=== PATIENT | male | born 1950 | race Two or more races ===

== ENCOUNTER 2023-02-11 16:20 | Inpatient (IN) | payer OTHER, MEDICAID ==
[~2023-02-11] VITALS: Ht 170.2 cm; Wt 83.0 kg
[2023-02-11 18:00] LABS: Basophils # (auto) 0 10 ^3/uL (0-0.2); Basophils % (auto) 0.7 % (0.0-2.0); Eosinophils # (auto) 0 10 ^3/uL (0-0.8); Eosinophils % (auto) 0.7 % (0.0-7.0); Hematocrit 35.7 % (41.0-53.0); Hemoglobin 11.4 g/dL (13.5-17.5); Lymphocytes # (auto) 0.6 10 ^3/uL (0.4-5.4); Lymphocytes % (auto) 8.8 % (10.0-50.0); Mean Corpuscular Hemoglobin 28.2 pg (28.0-32.0); Mean Corpuscular Volume 88.2 fL (80.0-100.0); Monocytes # (auto) 0.9 10 ^3/uL (0-1.3); Monocytes % (auto) 12.9 % (0.0-12.0); Neutrophils # (auto) 5.5 10 ^3/uL (1.6-8.6); Neutrophils % (auto) 76.9 % (37.0-80.0); Red Blood Cells 4.05 10^6/uL (4.5-5.90); Red Cell Distribution Width 17.9 % (11.8-14.3); White Blood Cell 7.1 10^3/uL (4.4-10.8)
[2023-02-11 18:23] LABS: Albumin 2.4 g/dL (3.4-5.0); Anion Gap 12 (5-15); Blood Urea Nitrogen 73 mg/dL (7-18); Calcium 10.3 mg/dL (8.5-10.1); Carbon Dioxide 17 mmol/L (21-32); Chloride 112 mmol/L (98-107); Glucose 170 mg/dL (74-106); Lipase 62 U/L (73-393); Magnesium 1.5 mg/dL (1.6-2.6); Potassium 4.5 mmol/L (3.5-5.1); Sodium 141 mmol/L (136-145)
[2023-02-11 18:28] LABS: Alanine Aminotransferase 18 U/L (16-61); Alkaline Phosphatase 37 U/L (45-117); Aspartate Aminotransferase 22 U/L (15-37); BUN/Creatinine Ratio 13.9 (10.0-20.0); Bilirubin, Total 0.5 mg/dL (0.2-1.0); Blood Alcohol < 3.0 mg/dL (<10); GFR African American 14 mL/min; GFR Non-African American 12 mL/min; Total Protein 5.2 g/dL (6.4-8.2)
[2023-02-11 18:32] LABS: Lactic Acid w/Reflex 3.8 mmol/L (0.4-2.0)
[2023-02-11 22:02] LABS: Urine Bacteria NONE SEEN /hpf (None Seen); Urine Blood 2+ /uL (Negative); Urine Specific Gravity 1.014 (1.001-1.035); Urine WBC 8 /hpf (0 - 3)
[2023-02-11 22:15] LABS: Barbiturate Scree,Urine NEGATIVE (NEGATIVE); Benzodiazephine Screen, Urine NEGATIVE (NEGATIVE); Cannabinoid Screen, Urine NEGATIVE (NEGATIVE)
[2023-02-11 22:19] LABS: Alcohol, Urine < 3.0 mg/dL (0-10); Amphetamine Screen, Urine NEGATIVE (NEGATIVE); Cocaine Screen, Urine NEGATIVE (NEGATIVE); Opiate Scree,Urine NEGATIVE (NEGATIVE); Phencyclidine Screen, Urine NEGATIVE (NEGATIVE)
[2023-02-11] MEDS ORDERED: NITROGLYCERIN 0.4 MG SL TAB SL PRN (22:30)
[2023-02-11] MEDS ORDERED: MORPHINE SULFATE INJ 2 MG/ml SYRG IV PRN (22:30)
[2023-02-11] MEDS ORDERED: CIPROFLOXACIN 400MG/200ML 200 ML IV ONE (22:30)
[2023-02-11] MEDS ORDERED: SOD CHL 0.45% 1,000 ML IV ONE (22:30)
[2023-02-11 23:28] LABS: INR 1.49 (0.9-1.15)
[2023-02-12] MEDS ORDERED: METF-370 PO (01:05)
[2023-02-12] MEDS ORDERED: FERR325T20 PO (01:05)
[2023-02-12] MEDS ORDERED: PRAV20TA3 PO (01:05)
[2023-02-12] MEDS ORDERED: DOCU-94 PO (01:05)
[2023-02-12] MEDS ORDERED: FENO145T27 PO (01:05)
[2023-02-12] MEDS ORDERED: ATEN-60 PO (01:05)
[2023-02-12] MEDS ORDERED: RIVA10TA PO (01:05)
[2023-02-12 05:52] LABS: Basophils # (auto) 0.1 10 ^3/uL (0-0.2); Basophils % (auto) 0.7 % (0.0-2.0); Eosinophils # (auto) 0.1 10 ^3/uL (0-0.8); Eosinophils % (auto) 1.1 % (0.0-7.0); Hematocrit 33.7 % (41.0-53.0); Hemoglobin 10.9 g/dL (13.5-17.5); Lymphocytes # (auto) 0.6 10 ^3/uL (0.4-5.4); Lymphocytes % (auto) 8.2 % (10.0-50.0); Mean Corpuscular Hemoglobin 28.5 pg (28.0-32.0); Mean Corpuscular Hgb Conc. 32.3 g/dL (32.0-36.0); Mean Corpuscular Volume 88.3 fL (80.0-100.0); Monocytes # (auto) 0.9 10 ^3/uL (0-1.3); Monocytes % (auto) 12.4 % (0.0-12.0); Neutrophils # (auto) 5.9 10 ^3/uL (1.6-8.6); Neutrophils % (auto) 77.6 % (37.0-80.0); Nucleated Red Blood Cells % 0.2 %; Red Blood Cells 3.82 10^6/uL (4.5-5.90); Red Cell Distribution Width 17.9 % (11.8-14.3); White Blood Cell 7.6 10^3/uL (4.4-10.8)
[2023-02-12 06:09] LABS: Potassium 4.3 mmol/L (3.5-5.1)
[2023-02-12 06:17] LABS: Albumin 2.2 g/dL (3.4-5.0); BUN/Creatinine Ratio 14.7 (10.0-20.0); Bilirubin, Total 0.5 mg/dL (0.2-1.0); Calcium 9.5 mg/dL (8.5-10.1); Total Protein 5.2 g/dL (6.4-8.2)
[2023-02-12] MEDS ORDERED: DEXTROSE (50%) 50ML SYRG IV ONE (08:00)
[2023-02-12] MEDS: cefTRIAXone 1GM/50ML D5W 50 ML IV SCH (08:45)
[2023-02-12 10:15] VITALS: BP 96/58
[2023-02-12 10:30] VITALS: BP 95/61
[2023-02-12] MEDS ORDERED: InsuLIN REG 1unit/0.01ml Soln (100units/ml) SC ONE (11:30)
[2023-02-12] MEDS ORDERED: ACCU-CHEK COMFORT CURVE STRIP VI ONE (11:30)
[2023-02-12 13:00] VITALS: BP 111/68
[2023-02-12] MEDS ORDERED: DEXTROSE (50%) 50ML SYRG IV PRN (14:00)
[2023-02-12 17:00] VITALS: BP 107/65
[2023-02-12] MEDS: InsuLIN REG 1unit/0.01ml Soln (100units/ml) SC SCH ×2 (17:00→20:37)
[2023-02-12] MEDS: ACCU-CHEK COMFORT CURVE STRIP VI SCH ×2 (17:05→20:38)
[2023-02-12] MEDS ORDERED: ONDANSETRON HCL 4 MG/2 ML VIAL IV PRN (17:30)
[2023-02-12 20:00] VITALS: BP 114/74
[2023-02-12] MEDS: HYDROcodone-ACET 5/325MG TAB PO PRN (20:34)
[2023-02-12 22:00] VITALS: BP 114/74
[2023-02-13] VITALS (7 sets, daily range): BP systolic 90–126; BP diastolic 48–78
[2023-02-13] MEDS ORDERED: DULA0.5I SC (04:07)
[2023-02-13] MEDS: ACCU-CHEK COMFORT CURVE STRIP VI SCH ×4 (05:49→22:25)
[2023-02-13] MEDS: InsuLIN REG 1unit/0.01ml Soln (100units/ml) SC SCH ×4 (05:49→22:00)
[2023-02-13] MEDS: cefTRIAXone 1GM/50ML D5W 50 ML IV SCH (10:51)
[2023-02-13 16:12] LABS: Calcium 9.1 mg/dL (8.5-10.1); Potassium 4.2 mmol/L (3.5-5.1)
[2023-02-13 16:15] LABS: BUN/Creatinine Ratio 14.9 (10.0-20.0)
[2023-02-13] MEDS ORDERED: SODIUM CHLORIDE 0.9% 1,000 ML IV ONE (18:30)
[2023-02-14 05:00] VITALS: BP 122/64
[2023-02-14] MEDS: InsuLIN REG 1unit/0.01ml Soln (100units/ml) SC SCH ×4 (06:26→23:02)
[2023-02-14] MEDS: ACCU-CHEK COMFORT CURVE STRIP VI SCH ×4 (06:26→23:00)
[2023-02-14 06:34] LABS: Basophils # (auto) 0 10 ^3/uL (0-0.2); Basophils % (auto) 0.7 % (0.0-2.0); Eosinophils # (auto) 0.1 10 ^3/uL (0-0.8); Eosinophils % (auto) 1.2 % (0.0-7.0); Hematocrit 33.3 % (41.0-53.0); Hemoglobin 10.8 g/dL (13.5-17.5); Lymphocytes # (auto) 0.5 10 ^3/uL (0.4-5.4); Lymphocytes % (auto) 7.5 % (10.0-50.0); Mean Corpuscular Hemoglobin 28.7 pg (28.0-32.0); Mean Corpuscular Hgb Conc. 32.4 g/dL (32.0-36.0); Mean Corpuscular Volume 88.6 fL (80.0-100.0); Monocytes # (auto) 0.8 10 ^3/uL (0-1.3); Neutrophils # (auto) 5.5 10 ^3/uL (1.6-8.6); Neutrophils % (auto) 78.6 % (37.0-80.0); Nucleated Red Blood Cells % 0.1 %; Red Blood Cells 3.76 10^6/uL (4.5-5.90); Red Cell Distribution Width 17.9 % (11.8-14.3); White Blood Cell 6.9 10^3/uL (4.4-10.8)
[2023-02-14 06:56] LABS: Albumin 2.2 g/dL (3.4-5.0); Calcium 8.9 mg/dL (8.5-10.1); Potassium 4.1 mmol/L (3.5-5.1)
[2023-02-14 07:01] LABS: BUN/Creatinine Ratio 14.9 (10.0-20.0); Bilirubin, Total 0.5 mg/dL (0.2-1.0); Total Protein 5.3 g/dL (6.4-8.2)
[2023-02-14 08:00] VITALS: BP 90/57
[2023-02-14 09:00] VITALS: BP 122/64
[2023-02-14] MEDS: cefTRIAXone 1GM/50ML D5W 50 ML IV SCH (09:14)
[2023-02-14] MEDS ORDERED: MIDAZOLAM HCL 2MG/2ML 2ml VIAL (1mg/ml) ONE (11:35)
[2023-02-14] MEDS ORDERED: fentaNYL CITRATE 100 MCG/2 ML VL ONE (11:35)
[2023-02-14] MEDS ORDERED: IOHEXOL 350 MG/ML 100ML IJ ONE (12:10)
[2023-02-14] MEDS ORDERED: LIDOCAINE 2%HCL (LOCAL ANESTH.) INJ 20ML MDV ONE (12:10)
[2023-02-14 13:00] VITALS: BP 125/74
[2023-02-14 22:00] VITALS: BP 102/60
[2023-02-14] MEDS: HYDROcodone-ACET 5/325MG TAB PO PRN (23:24)
[2023-02-15 05:00] VITALS: BP 114/70
[2023-02-15 06:33] LABS: BUN/Creatinine Ratio 15.7 (10.0-20.0); Calcium 8.6 mg/dL (8.5-10.1); Potassium 3.8 mmol/L (3.5-5.1)
[2023-02-15] MEDS: ACCU-CHEK COMFORT CURVE STRIP VI SCH ×3 (06:42→17:05)
[2023-02-15] MEDS: InsuLIN REG 1unit/0.01ml Soln (100units/ml) SC SCH ×3 (06:45→17:00)
[2023-02-15 08:00] VITALS: BP 102/58
[2023-02-15 09:00] VITALS: BP 102/58
[2023-02-15] MEDS: cefTRIAXone 1GM/50ML D5W 50 ML IV SCH (10:03)
[2023-02-15 15:14] LABS: Basophils # (auto) 0 10 ^3/uL (0-0.2); Basophils % (auto) 0.6 % (0.0-2.0); Eosinophils # (auto) 0.1 10 ^3/uL (0-0.8); Eosinophils % (auto) 1.9 % (0.0-7.0); Hematocrit 38.2 % (41.0-53.0); Hemoglobin 10.9 g/dL (13.5-17.5); Lymphocytes # (auto) 0.4 10 ^3/uL (0.4-5.4); Lymphocytes % (auto) 7.9 % (10.0-50.0); Mean Corpuscular Hemoglobin 28.9 pg (28.0-32.0); Mean Corpuscular Hgb Conc. 28.4 g/dL (32.0-36.0); Mean Corpuscular Volume 101.7 fL (80.0-100.0); Monocytes # (auto) 0.6 10 ^3/uL (0-1.3); Monocytes % (auto) 12.3 % (0.0-12.0); Neutrophils # (auto) 4.1 10 ^3/uL (1.6-8.6); Neutrophils % (auto) 77.3 % (37.0-80.0); Nucleated Red Blood Cells % 0.1 %; Red Blood Cells 3.76 10^6/uL (4.5-5.90); Red Cell Distribution Width 19.9 % (11.8-14.3); White Blood Cell 5.3 10^3/uL (4.4-10.8)
[2023-02-15 15:24] LABS: Calcium 8.9 mg/dL (8.5-10.1)
[2023-02-15 15:27] LABS: BUN/Creatinine Ratio 14.8 (10.0-20.0)
[2023-02-15 15:37] LABS: Potassium 3.9 mmol/L (3.5-5.1)
[2023-02-15] MEDS: HYDROcodone-ACET 5/325MG TAB PO PRN (17:02)
[2023-02-15 17:12] VITALS: BP 102/56
[2023-02-15 21:42] VITALS: BP 95/55
== END 2023-02-15 22:14 | disposition home health service (06) | DRG 689 ==
LOC: EDBD 16:20 → ER 16:20 → TELE 22:33 → TELE-WESTW 02-12 10:17
PROVIDERS: ADMIT Internal Medicine; ATTEND Internal Medicine
PROC: 0T9330Z Drainage of Right Kidney Pelvis with Drainage Device, Percutaneous Approach (ICD-10-PCS; principal; 2023-02-14)
PROC: BT111ZZ Fluoroscopy of Right Kidney using Low Osmolar Contrast (ICD-10-PCS; 2023-02-14)
PROC: BT41ZZZ Ultrasonography of Right Kidney (ICD-10-PCS; 2023-02-14)
DX: N13.6 Pyonephrosis (principal); G93.41 Metabolic encephalopathy; N17.9 Acute kidney failure, unspecified; G93.89 Other specified disorders of brain; I12.9 Hypertensive chronic kidney disease with stage 1 through stage 4 chronic kidney disease, or unspecified chronic kidney disease; E11.22 Type 2 diabetes mellitus with diabetic chronic kidney disease; E11.51 Type 2 diabetes mellitus with diabetic peripheral angiopathy without gangrene; N18.4 Chronic kidney disease, stage 4 (severe); I35.0 Nonrheumatic aortic (valve) stenosis; Z89.611 Acquired absence of right leg above knee; Z89.612 Acquired absence of left leg above knee; N20.0 Calculus of kidney
CPT/HCPCS: 36415; 50432; 70450; 70551; 71045; 71250; 74018; 74176; 76000; 76942; 78582; 80048; 80053; 80307; 80320; 81001; 82962; 83605; 83690; 83735; 83880; 84484; 85025; 85379; 85610; 86850; 86900; 86901; 87040; 93005; 93306; 96365; G0378; J0696; J1815; J2250; J2405

== ENCOUNTER 2023-04-02 16:54 | Inpatient (IN) | payer OTHER, MEDICAID ==
[~2023-04-02] VITALS: Ht 170.2 cm; Wt 67.6 kg
[~2023-04-02 16:54] MED LIST: ATEN-60 PO; DOCU-94 PO; DULA0.5I SC; FENO145T27 PO; FERR325T20 PO; METF-370 PO; PRAV20TA3 PO; RIVA10TA PO
[2023-04-02] MEDS ORDERED: SODIUM CHLORIDE 0.9% 1,000 ML IVB ONE (18:00)
[2023-04-02 18:59] LABS: Basophils # (auto) 0.1 10 ^3/uL (0-0.2); Basophils % (auto) 0.9 % (0.0-2.0); Eosinophils # (auto) 0 10 ^3/uL (0-0.8); Eosinophils % (auto) 0.6 % (0.0-7.0); Hematocrit 31.9 % (41.0-53.0); Hemoglobin 10.4 g/dL (13.5-17.5); Lymphocytes # (auto) 0.8 10 ^3/uL (0.4-5.4); Lymphocytes % (auto) 11.6 % (10.0-50.0); Mean Corpuscular Hemoglobin 29.8 pg (28.0-32.0); Mean Corpuscular Hgb Conc. 32.5 g/dL (32.0-36.0); Mean Corpuscular Volume 91.7 fL (80.0-100.0); Monocytes # (auto) 0.8 10 ^3/uL (0-1.3); Monocytes % (auto) 12.3 % (0.0-12.0); Neutrophils # (auto) 5.1 10 ^3/uL (1.6-8.6); Neutrophils % (auto) 74.6 % (37.0-80.0); Nucleated Red Blood Cells % 0.1 %; Red Blood Cells 3.48 10^6/uL (4.5-5.90); Red Cell Distribution Width 15.8 % (11.8-14.3); White Blood Cell 6.8 10^3/uL (4.4-10.8)
[2023-04-02 19:15] LABS: INR 1.19 (0.9-1.15); Partial Thromboplastin Time 33.4 SEC (24.5-34.5); Prothrombin Time 12.4 sec (9.3-11.8)
[2023-04-02 19:17] LABS: Albumin 2.4 g/dL (3.4-5.0); Calcium 10.7 mg/dL (8.5-10.1); Magnesium 1.7 mg/dL (1.6-2.6)
[2023-04-02 19:19] LABS: BUN/Creatinine Ratio 21.3 (10.0-20.0)
[2023-04-02 19:21] LABS: Bilirubin, Total 0.3 mg/dL (0.2-1.0); Total Protein 5.5 g/dL (6.4-8.2)
[2023-04-02 19:26] LABS: Potassium 6.5 mmol/L (3.5-5.1)
[2023-04-02] MEDS ORDERED: ALBUTEROL SULF 2.5 MG/0.5ML(0.5%) NEB SOLN NEB ONE ×2 (19:45→21:00)
[2023-04-02 20:19] LABS: Calcium 10.5 mg/dL (8.5-10.1)
[2023-04-02 20:21] LABS: BUN/Creatinine Ratio 20.9 (10.0-20.0)
[2023-04-02 20:24] LABS: Potassium 6.4 mmol/L (3.5-5.1)
[2023-04-02] MEDS ORDERED: SODIUM ZIRCONIUM CYCL 10 GM PAK PO ONE (21:00)
[2023-04-02] MEDS ORDERED: DEXTROSE (50%) 50ML SYRG IV ONE (21:00)
[2023-04-02] MEDS ORDERED: SODIUM BICARBONATE 8.4% INJ 50ML SYRINGE IV ONE (21:00)
[2023-04-02] MEDS ORDERED: CALCIUM GLUC 1,000mg/50ml-NS 50 ML IV ONE (21:00)
[2023-04-02] MEDS ORDERED: InsuLIN REG 1unit/0.01ml Soln (100units/ml) IV ONE (21:00)
[2023-04-02 21:10] VITALS: PULSE 94; RESP 20; O2SAT 98
[2023-04-03 03:50] VITALS: PULSE 95; RESP 20; O2SAT 97
[2023-04-03] MEDS ORDERED: SODIUM CHLORIDE 0.9% 1,000 ML IV ONE (05:00)
[2023-04-03 05:27] LABS: Urine Bacteria MANY /hpf (None Seen); Urine Blood TRACE /uL (Negative); Urine Clarity HAZY (Clear); Urine Color Colorless (Yellow); Urine Protein, UAD 1+ (Negative); Urine Specific Gravity 1.013 (1.001-1.035); Urine WBC 345 /hpf (0 - 3)
[2023-04-03 05:49] LABS: BUN/Creatinine Ratio 22.4 (10.0-20.0); Calcium 10.4 mg/dL (8.5-10.1)
[2023-04-03 05:54] LABS: Potassium 5.6 mmol/L (3.5-5.1)
[2023-04-03] MEDS ORDERED: MORPHINE SULFATE INJ 2 MG/ml SYRG IV PRN ×2 (06:30→07:15)
[2023-04-03] MEDS ORDERED: SODIUM ZIRCONIUM CYCL 10 GM PAK PO ONE (06:30)
[2023-04-03] MEDS ORDERED: SODIUM BICARBONATE 50ML VIAL 50 ML in SOD CHL 0.45% 1,000 ML IV ONE (06:30)
[2023-04-03] MEDS ORDERED: ONDANSETRON HCL 4 MG/2 ML VIAL IV PRN (06:30)
[2023-04-03] MEDS ORDERED: DEXTROSE (50%) 50ML SYRG IV PRN (06:45)
[2023-04-03] MEDS ORDERED: SODIUM BICARBONATE 8.4 % INJ 50ML VIAL IV ONE (06:53)
[2023-04-03] MEDS: InsuLIN REG 1unit/0.01ml Soln (100units/ml) SC SCH ×4 (07:00→23:01)
[2023-04-03] MEDS: ACCU-CHEK COMFORT CURVE STRIP VI SCH ×4 (07:12→23:01)
[2023-04-03] MEDS ORDERED: NITROGLYCERIN 0.4 MG SL TAB SL PRN (07:15)
[2023-04-03 08:00] VITALS: PULSE 67; RESP 16; O2SAT 97
[2023-04-03] MEDS ORDERED: cefTRIAXone 1GM/50ML D5W 50 ML IV SCH (09:00)
[2023-04-03] MEDS ORDERED: RIVAROXABAN 2.5 MG TAB PO SCH (10:00)
[2023-04-03] MEDS ORDERED: SODIUM CHLORIDE 0.9% 2,000 ML IV ONE (10:30)
[2023-04-03 11:06] LABS: Basophils # (auto) 0 10 ^3/uL (0-0.2); Basophils % (auto) 0.7 % (0.0-2.0); Eosinophils # (auto) 0 10 ^3/uL (0-0.8); Eosinophils % (auto) 0.2 % (0.0-7.0); Hematocrit 28.6 % (41.0-53.0); Hemoglobin 9.3 g/dL (13.5-17.5); Lymphocytes # (auto) 0.7 10 ^3/uL (0.4-5.4); Lymphocytes % (auto) 12.1 % (10.0-50.0); Mean Corpuscular Hemoglobin 29.9 pg (28.0-32.0); Mean Corpuscular Hgb Conc. 32.4 g/dL (32.0-36.0); Monocytes # (auto) 0.7 10 ^3/uL (0-1.3); Monocytes % (auto) 12.9 % (0.0-12.0); Neutrophils % (auto) 74.1 % (37.0-80.0); Nucleated Red Blood Cells % 0.1 %; Red Blood Cells 3.11 10^6/uL (4.5-5.90); Red Cell Distribution Width 15.8 % (11.8-14.3); White Blood Cell 5.4 10^3/uL (4.4-10.8)
[2023-04-03 11:44] LABS: Calcium 10.5 mg/dL (8.5-10.1)
[2023-04-03 11:45] LABS: BUN/Creatinine Ratio 23.4 (10.0-20.0)
[2023-04-03 11:47] LABS: Potassium 5.5 mmol/L (3.5-5.1)
[2023-04-03] MEDS ORDERED: IBUPROFEN 800 MG TAB PO ONE (12:15)
[2023-04-03] MEDS: PIPERACILLIN-TAZOB 2.25GM 50 ML IV SCH ×3 (12:28→23:35)
[2023-04-03] MEDS: SODIUM BICARBONATE 50ML VIAL 50 ML in SOD CHL 0.45% 1,000 ML IV SCH (13:52)
[2023-04-03 15:30] LABS: Protein, Urine 118.6 mg/dL (0.0-11.9); Urine Protein/Creatinine Ratio 2.76
[2023-04-03 19:45] VITALS: PULSE 67; RESP 16; O2SAT 95
[2023-04-03 22:10] LABS: INR 1.16 (0.9-1.15); Partial Thromboplastin Time 36.3 SEC (24.5-34.5); Prothrombin Time 12.1 sec (9.3-11.8)
[2023-04-04] MEDS: SODIUM BICARBONATE 50ML VIAL 50 ML in SOD CHL 0.45% 1,000 ML IV SCH ×3 (01:03→18:45)
[2023-04-04] MEDS: PIPERACILLIN-TAZOB 2.25GM 50 ML IV SCH ×3 (06:17→23:43)
[2023-04-04] MEDS: ACCU-CHEK COMFORT CURVE STRIP VI SCH ×4 (06:45→23:44)
[2023-04-04] MEDS: InsuLIN REG 1unit/0.01ml Soln (100units/ml) SC SCH ×4 (06:45→22:00)
[2023-04-04 07:31] LABS: Basophils # (auto) 0 10 ^3/uL (0-0.2); Eosinophils # (auto) 0.1 10 ^3/uL (0-0.8); Mean Corpuscular Hgb Conc. 32.4 g/dL (32.0-36.0); Nucleated Red Blood Cells % 0.1 %
[2023-04-04 07:33] LABS: Basophils % (auto) 0.6 % (0.0-2.0); Eosinophils % (auto) 1.7 % (0.0-7.0); Hematocrit 24.4 % (41.0-53.0); Hemoglobin 7.9 g/dL (13.5-17.5); Lymphocytes # (auto) 0.6 10 ^3/uL (0.4-5.4); Lymphocytes % (auto) 11.8 % (10.0-50.0); Mean Corpuscular Hemoglobin 30.1 pg (28.0-32.0); Mean Corpuscular Volume 92.8 fL (80.0-100.0); Monocytes # (auto) 0.6 10 ^3/uL (0-1.3); Neutrophils # (auto) 3.5 10 ^3/uL (1.6-8.6); Neutrophils % (auto) 73.9 % (37.0-80.0); Red Blood Cells 2.63 10^6/uL (4.5-5.90); Red Cell Distribution Width 15.8 % (11.8-14.3); White Blood Cell 4.7 10^3/uL (4.4-10.8)
[2023-04-04 07:42] LABS: Calcium 9.5 mg/dL (8.5-10.1); Potassium 4.7 mmol/L (3.5-5.1)
[2023-04-04 07:45] LABS: BUN/Creatinine Ratio 22.1 (10.0-20.0)
[2023-04-04 08:00] VITALS: PULSE 72; RESP 11; O2SAT 11
[2023-04-04 11:21] VITALS: PULSE 74; RESP 20
[2023-04-04] MEDS ORDERED: LORA-1120 PO (11:54)
[2023-04-04] MEDS ORDERED: QUET1TAB11 PO (11:54)
[2023-04-04 20:00] VITALS: PULSE 77; PULSE 85; RESP 19; O2SAT 98
[2023-04-04 22:00] VITALS: BP 102/44; PULSE 85; RESP 19; TEMP 97.6; O2SAT 98
[2023-04-05] MEDS: PIPERACILLIN-TAZOB 2.25GM 50 ML IV SCH ×2 (06:03→14:00)
[2023-04-05] MEDS: ACCU-CHEK COMFORT CURVE STRIP VI SCH ×3 (06:04→17:00)
[2023-04-05] MEDS: InsuLIN REG 1unit/0.01ml Soln (100units/ml) SC SCH ×3 (06:04→17:00)
[2023-04-05 08:00] VITALS: PULSE 70; PULSE 84; RESP 20
[2023-04-05] MEDS: SODIUM BICARBONATE 50ML VIAL 50 ML in SOD CHL 0.45% 1,000 ML IV SCH (08:45)
[2023-04-05 09:00] VITALS: BP 116/59; PULSE 76; RESP 18; TEMP 98.2; O2SAT 96
[2023-04-05] MEDS ORDERED: IODIXANOL 320MG/ML 100ML BTL IV ONE (10:14)
[2023-04-05] MEDS ORDERED: LIDOCAINE 2%HCL (LOCAL ANESTH.) INJ 20ML MDV ONE (10:14)
[2023-04-05] MEDS ORDERED: fentaNYL CITRATE 100 MCG/2 ML VL ONE (10:14)
[2023-04-05] MEDS ORDERED: MIDAZOLAM HCL 2MG/2ML 2ml VIAL (1mg/ml) ONE (10:14)
[2023-04-05 13:00] VITALS: BP 93/47; PULSE 89; RESP 19; TEMP 97.4; O2SAT 96
[2023-04-05 16:39] VITALS: BP 116/59; PULSE 76; RESP 18; TEMP 98.2; O2SAT 96
[2023-04-05 17:18] VITALS: BP 102/53; PULSE 63; RESP 18; TEMP 97.9; O2SAT 98
== END 2023-04-05 19:00 | disposition home health service (06) | DRG 699 ==
LOC: ER 16:54 → EDSEX 16:54 → EDBD 16:54 → TELE 04-03 07:06 → TELE-EAST 04-04 10:53 → TELE-E-ADS 04-04 22:50
PROVIDERS: ADMIT Internal Medicine; ATTEND Internal Medicine
PROC: 05HA33Z Insertion of Infusion Device into Left Brachial Vein, Percutaneous Approach (ICD-10-PCS; 2023-04-03)
PROC: B54NZZA Ultrasonography of Left Upper Extremity Veins, Guidance (ICD-10-PCS; 2023-04-03)
PROC: 0T9330Z Drainage of Right Kidney Pelvis with Drainage Device, Percutaneous Approach (ICD-10-PCS; principal; 2023-04-05)
PROC: BT11YZZ Fluoroscopy of Right Kidney using Other Contrast (ICD-10-PCS; 2023-04-05)
PROC: BT41ZZZ Ultrasonography of Right Kidney (ICD-10-PCS; 2023-04-05)
DX: T83.022A Displacement of nephrostomy catheter, initial encounter (principal); E87.20 Acidosis, unspecified; N17.9 Acute kidney failure, unspecified; N39.0 Urinary tract infection, site not specified; F20.0 Paranoid schizophrenia; N18.4 Chronic kidney disease, stage 4 (severe); E87.5 Hyperkalemia; N13.9 Obstructive and reflux uropathy, unspecified; E11.51 Type 2 diabetes mellitus with diabetic peripheral angiopathy without gangrene; E11.22 Type 2 diabetes mellitus with diabetic chronic kidney disease; D63.1 Anemia in chronic kidney disease; Y83.8 Other surgical procedures as the cause of abnormal reaction of the patient, or of later complication, without mention of misadventure at the time of the procedure; F03.90 Unspecified dementia, unspecified severity, without behavioral disturbance, psychotic disturbance, mood disturbance, and anxiety; I12.9 Hypertensive chronic kidney disease with stage 1 through stage 4 chronic kidney disease, or unspecified chronic kidney disease; Z79.01 Long term (current) use of anticoagulants; Z87.442 Personal history of urinary calculi; Y92.89 Other specified places as the place of occurrence of the external cause; Z89.611 Acquired absence of right leg above knee; Z89.612 Acquired absence of left leg above knee
CPT/HCPCS: 36415; 74176; 74425; 76942; 80048; 80053; 81001; 82570; 82962; 83690; 83735; 84132; 84156; 84300; 84484; 85025; 85610; 85730; 87040; 87086; 93005; 94640; G0378; J1815; J2250; J2543; Q9967